=== PATIENT | male | born 1945 | race Caucasian/White ===

== ENCOUNTER 2021-09-22 01:21 | Day surgery (SDC) | payer MEDICARE, SELFPAY ==
[2021-09-10 13:57] VITALS: BMI 27.9
--- NOTE | 2021-09-21 12:48 | WPDANESEPPF ---
Anes - Initial Pre Proc Eval Procedure: Operation Date: 09/22/21 10:30 Proposed Procedures p Screening Colonoscopy - Dennys Adames MD Date/Time: 09/21/21 12:48 Surgeon: Dennys Adames MD Pre Op Diagnosis: hx of colon polyps Patient Data Age: 76 Gender: M Height: 1.8 m Weight: 91 kg Allergies Allergy/AdvReac Type Severity Reaction Status Date / Time doxycycline Allergy Intermediate Hives Verified 09/22/21 09:11 fexofenadine Allergy Unknown palpitation Verified 09/22/21 09:11 s pseudoephedrine [Adrianna-D] Allergy Unknown palpitation Verified 09/22/21 09:11 s Home Medications Medication Instructions Recorded Confirmed Type aspirin 81 mg tablet,delayed 81 mg PO EVERY OTHER DAY 05/02/19 09/22/21 History release flash glucose scanning reader #1 ea 08/11/20 09/22/21 Rx flash glucose sensor #1 ea 08/11/20 09/22/21 Rx blood sugar diagnostic #100 each 01/26/21 09/22/21 Rx metformin 500 mg tablet,extended 250 mg PO DAILY #90 tablet 01/26/21 09/22/21 Rx release 24 hr lisinopril 20 1 tablet PO DAILY #90 tablet 02/02/21 09/22/21 Rx mg-hydrochlorothiazide 12.5 mg tablet simvastatin 40 mg tablet 40 mg PO DAILY #90 tablet 02/02/21 09/22/21 Rx Patient hx anesthesia problems: none Family hx anesthesia problems: none Results Review: All pre-operative results and documents have been reviewed as part of the pre-operative evaluation. [facility] Past Medical History Medical History (Updated 09/21/21 @ 12:48 by Sheldon Vasquez DO) Essential (primary) hypertension Essential tremor Gastro-esophageal reflux disease without esophagitis Mixed hyperlipidemia Normal eye exam after pupil dilation 09-23-2016 Palpitations Type 2 diabetes mellitus with hyperglycemia Surgical History Surgical History H/O hernia repair Family History Family History Mother Diabetes mellitus, Onset Age: 83 Hypertension Family history of lymphoma Father Family history of cardiovascular disease, Onset Age: 63 Acute myocardial infarction Social History Social History Smoking status: Current some day smoker Tobacco type: cigars Second hand tobacco smoke exposure: No Alcohol intake: current Drinks per week: 14 Alcohol use details: 2 glasses of wine per night most of the time. Substance use: never Substance use type: does not use Living arrangements: alone Gender identity (if verbalized by the patient): Male Spiritual care concerns: No Agree to blood products: Yes Anes - Eval Final PreProcedure Day of Procedure 09/21/21 12:48 Patient weight: overweight Heart: regular rate and rhythm Lungs: clear to auscultation and normal air movement Airway: Mallampati scale class II Neurological: alert and oriented Last oral intake: >/= 8 hours ASA classification: III Emergent: no Anesthetic plan: proceed Anesthesia type and monitoring: general GIVS and standard monitoring Results Review: All pre-operative results and documents have been reviewed as part of the pre-operative evaluation. Informed Consent: The patient's anesthetic plan and its attendant risks and benefits were discussed with the patient/family/POA. Questions were solicited and answers provided to the satisfaction of the patient/family/POA.
[2021-09-22 09:13] VITALS: BP 171/76; PULSE 66; RESP 18; TEMP 36.8; O2SAT 99; BMI 28.7
--- NOTE | 2021-09-22 09:15 | WPDGICN ---
Assessment and Plan Assessment and plan (1) Polyp of colon: Qualifiers: Colon polyp type: unspecified Colon location: unspecified part of colon Qualified Code(s): K63.5 - Polyp of colon Code(s): K63.5 - Polyp of colon Status: Chronic Assessment and Plan: Patient has a history of a benign colon polyp removed from the colon 2015. Plan is for surveillance colonoscopy at this time. Further recommendations will be given after endoscopy. GI Consult Note Consult date/time: 09/22/21 09:15 HPI: Champ Marquez is a 76 year old male Presents for screening colonoscopy. Patient's current weight appetite and bowel movements are normal. Patient denies abdominal pain. He has had no bleeding. Previous colonoscopy 2016 revealed benign colon polyp. Patient presents today for follow-up colonoscopy. Review of Systems Review of Systems: All systems reviewed & are unremarkable except as noted in HPI and below PMFSH Past Medical History Medical History (Updated 09/21/21 @ 12:48 by Sheldon Vasquez DO) Essential (primary) hypertension Essential tremor Gastro-esophageal reflux disease without esophagitis Mixed hyperlipidemia Normal eye exam after pupil dilation 09-23-2016 Palpitations Type 2 diabetes mellitus with hyperglycemia Surgical History Surgical History H/O hernia repair Family History Family History Mother Diabetes mellitus, Onset Age: 83 Hypertension Family history of lymphoma Father Family history of cardiovascular disease, Onset Age: 63 Acute myocardial infarction Social History Social History Smoking status: Current some day smoker Tobacco type: cigars Second hand tobacco smoke exposure: No Alcohol intake: current Drinks per week: 14 Alcohol use details: 2 glasses of wine per night most of the time. Substance use: never Substance use type: does not use Living arrangements: alone Gender identity (if verbalized by the patient): Male Spiritual care concerns: No Agree to blood products: Yes Meds Home Medications and Allergies Home Medications Medication Instructions Recorded Confirmed Type aspirin 81 mg tablet,delayed 81 mg PO EVERY OTHER DAY 05/02/19 09/22/21 History release flash glucose scanning reader #1 ea 08/11/20 09/22/21 Rx flash glucose sensor #1 ea 08/11/20 09/22/21 Rx blood sugar diagnostic #100 each 01/26/21 09/22/21 Rx metformin 500 mg tablet,extended 250 mg PO DAILY #90 tablet 01/26/21 09/22/21 Rx release 24 hr lisinopril 20 1 tablet PO DAILY #90 tablet 02/02/21 09/22/21 Rx mg-hydrochlorothiazide 12.5 mg tablet simvastatin 40 mg tablet 40 mg PO DAILY #90 tablet 02/02/21 09/22/21 Rx Allergies Allergy/AdvReac Type Severity Reaction Status Date / Time doxycycline Allergy Intermediate Hives Verified 09/22/21 09:11 fexofenadine Allergy Unknown palpitation Verified 09/22/21 09:11 s pseudoephedrine [Adrianna-D] Allergy Unknown palpitation Verified 09/22/21 09:11 s Vital Signs Vital Signs - 24 hr 09/22/21 09:13 Temperature 98.3 F Pulse Rate 66 Respiratory Rate 18 Blood Pressure 171/76 H Pulse Oximetry 99 Exam Narrative: Physical exam reveals patient to be alert. Vital signs stable. HEENT exam is unremarkable. Patient is anicteric. Lungs are clear to auscultation and percussion. Heart is without murmur or extra sounds. Abdominal exam bowel sounds are present soft nontender with no organomegaly. Digital external rectal exam is normal.
[2021-09-22] MEDS: LACTATED RINGERS 1,000 ML 150 ML IV CONT (09:25)
[2021-09-22 09:32] LABS: Glucose Point of Care 128 mg/dl (65-105)
[2021-09-22] MEDS: SIMETHICONE ORAL SUSPENSION 20 MG/0.3 ML 30 ML BOTTLE 0.6 ML IRRIGATION (11:15)
--- NOTE | 2021-09-22 11:28 | SUR.OPER ---
1127- SIGMOID COLON POLYPECTOMY X2. ONLY [address] FUENTES AWARE.
[2021-09-22 11:30] VITALS: BP 120/71; PULSE 50; RESP 20; O2SAT 98
[2021-09-22 11:40] VITALS: BP 144/74; PULSE 52; RESP 18; O2SAT 100
[2021-09-22 11:50] VITALS: BP 166/80; PULSE 50; RESP 18; O2SAT 100
== END 2021-09-22 11:55 | disposition home or self-care (01) ==
PROVIDERS: PCP Family Medicine; Visit Provider Internal Medicine Gastroenterology
PROC: 0DJD8ZZ Inspection of Lower Intestinal Tract, Via Natural or Artificial Opening Endoscopic (ICD-10-PCS; CPT 45378; principal; 2021-09-22 10:30)
DX: Z12.11 Encounter for screening for malignant neoplasm of colon (principal); D12.0 Benign neoplasm of cecum; D12.5 Benign neoplasm of sigmoid colon; K57.30 Diverticulosis of large intestine without perforation or abscess without bleeding; K64.8 Other hemorrhoids; K21.9 Gastro-esophageal reflux disease without esophagitis; I10 Essential (primary) hypertension; G25.0 Essential tremor; E78.2 Mixed hyperlipidemia; E11.9 Type 2 diabetes mellitus without complications; Z72.0 Tobacco use
CPT/HCPCS: 45385; 82948; 88305; J2704; J7120

== ENCOUNTER 2021-11-19 08:18 | Outpatient (CLI) | payer MEDICARE, SELFPAY ==
--- NOTE | 2021-11-19 08:34 | EST_ITS ---
Patient Info Name: Champ Marquez Age: 76 years : 1945 Gender: Male Ht: 73 in Wt: 205 lbs BSA: 2.20 m2 HR: 64 bpm BP: 165 / 87 mmHg Technical Quality: Good Exam Date: 11/19/2021 8:57 AM Exam Location: [facility] Pulmonary Exam Room: stress lab Patient Status: Outpatient Admit Date: 11/19/2021 Staff Ordering Physician: Rojelio Espino MD Appliance Mechanic: Olamide Byers RDCS Attending Provider: Rojelio Espino MD Exercise Technologist: Orquidea Gomez CT Exercise Physician: Drake Vásquez DO Exam Type: CA stress echo Study Info Indications R00.1 - Bradycardia, unspecified Treadmill exercise stress echocardiogram is performed. Appropriate Use Criteria Palpitations and No other symptoms or signs of cardiovascular disease (Rarely Appropriate (1.0)). Summary 1. 1. Negative Castro exercise stress test for ischemic ST changes by ECG criteria. 2. 2. Reduced functional capacity, achieving 7 METs of workload. 3. 3. Baseline hypertension with hypertensive response to exercise. 4. 4. Appropriate HR response to exercise. 5. 5. Appropriate HR recovery at 1 minute post exercise. 6. 6. Negative stress echocardiogram for ischemia by wall motion analysis. 7. 7. Patient informed of the above results. Stress Echo Findings Left Ventricle Appropriate increase in LV endocardial thickening with systole. Appropriate augmenation of contractility with systole. No wall motion abnormality. Left Ventricle Normal LV systolic function, no wall motion abnormality. Protocol: Castro Stress ECG Details Stage: REST Duration (min): 1 min : 48 sec Speed (mph): 0.0 Grade (%): 0 HR (bpm): 75 SBP (mmHg): 165 DBP (mmHg): 87 METS: --- Stage: REST Duration (min): 10 min : 34 sec Speed (mph): 0.0 Grade (%): 0 HR (bpm): 71 SBP (mmHg): 165 DBP (mmHg): 87 METS: --- Stage: STAGE 1 Duration (min): 1 min : 0 sec Speed (mph): 1.7 Grade (%): 10 HR (bpm): 89 SBP (mmHg): 165 DBP (mmHg): 87 METS: --- Stage: STAGE 1 Duration (min): 2 min : 0 sec Speed (mph): 1.7 Grade (%): 10 HR (bpm): 101 SBP (mmHg): 165 DBP (mmHg): 87 METS: --- Stage: STAGE 1 Duration (min): 3 min : 0 sec Speed (mph): 1.7 Grade (%): 10 HR (bpm): 107 SBP (mmHg): 164 DBP (mmHg): 88 METS: --- Stage: STAGE 2 Duration (min): 1 min : 0 sec Speed (mph): 2.5 Grade (%): 12 HR (bpm): 114 SBP (mmHg): 164 DBP (mmHg): 88 METS: --- Stage: STAGE 2 Duration (min): 2 min : 0 sec Speed (mph): 2.5 Grade (%): 12 HR (bpm): 119 SBP (mmHg): 164 DBP (mmHg): 88 METS: --- Stage: STAGE 2 Duration (min): 3 min : 0 sec Speed (mph): 2.5 Grade (%): 12 HR (bpm): 124 SBP (mmHg): 164 DBP (mmHg): 88 METS: --- Stage: STAGE 3 Duration (min): 0 min : 7 sec Speed (mph): 0.0 Grade (%): 0 HR (bpm): 125 SBP (mmHg): 164 DBP (mmHg): 88 METS: --- Stage: RECOVERY Duration (min): 0 min
== END 2021-11-19 08:19 | disposition home or self-care (01) ==
PROVIDERS: PCP Family Medicine; Visit Provider Family Medicine
DX: R00.2 Palpitations (principal)
CPT/HCPCS: 93351

== ENCOUNTER 2022-08-18 10:48 | Outpatient (CLI) | payer MEDICARE, SELFPAY ==
[2022-08-18 12:21] LABS: Toxigenic C. Diff NEGATIVE (NEGATIVE)
== END 2022-08-18 10:49 | disposition home or self-care (01) ==
LOC: ANHLAB 10:49
PROVIDERS: PCP Emergency Medicine; Visit Provider Emergency Medicine
DX: R19.7 Diarrhea, unspecified (principal)
CPT/HCPCS: 87493